=== PATIENT | female | born 1950 | race Caucasian/White ===

== ENCOUNTER → 2017-02-15 | Outpatient (CLI) | payer MEDICARE ==
--- NOTE | 2017-02-15 15:29 | CT ---
EXAMINATION TYPE: CT chest wo con DATE OF EXAM: 02/15/2017 COMPARISON: Chest CT September 16, 2012 HISTORY: SOB and cough. CT DLP: 710 mGycm. Automated Exposure Control for Dose Reduction was Utilized. TECHNIQUE: CT scan of the thorax is performed without IV contrast. FINDINGS: LUNGS: There are new areas of new groundglass opacity with reticulation and septal thickening seen bi laterally involving upper and lower lobes with slightly more prominent focal involvement in the left upper lobe noted. No significant nodularity is seen. No bronchiectasis or bronchial wall thickening i s present. No significant honeycombing or cystic change. No pleural effusion or pneumothorax is noted . MEDIASTINUM: Lack of IV contrast is noted to limit evaluation for mediastinal and especially hilar a denopathy. There are no definitive greater than 1 cm hilar or mediastinal lymph nodes. No cardiomeg lisandro or pericardial effusion is seen. Mild to moderate left atrial dilatation is felt redemonstrated. Prominent coronary artery calcification and/or coronary stents is seen. There is gas filled esophagus with focal moderate to large size hiatal hernia now identified. OTHER: Some asymmetric atrophy of left kidney is noted which is small in size and shows cortical thin manuel. Cholecystectomy clips are now identified. IMPRESSION: 1. New lung findings since 2012 CT suggesting predominantly pulmonary fibrosis, consider IPF. Clinica l correlation advised. 2. New asymmetric atrophy of left kidney noted. Correlate with renal lab values. 3. New moderate to large size hiatal hernia noted.
== END | disposition home or self-care (01) ==
LOC: RADCTMAIN 14:45
PROVIDERS: ATTEND Internal Medicine
DX: R94.2 Abnormal results of pulmonary function studies (principal); R05 Cough; R06.02 Shortness of breath
CPT/HCPCS: 71250

== ENCOUNTER → 2018-12-14 | Outpatient (CLI) | payer MEDICARE | END | disposition home or self-care (01) | LOC: LABWHC1 10:21 | PROVIDERS: ATTEND Internal Medicine Endocrinology, Diabetes & Metabolism | DX: E27.3 Drug-induced adrenocortical insufficiency (principal) | CPT/HCPCS: 36415; 82024; 82533 ==

== ENCOUNTER 2019-08-09 17:13 | Emergency (ER) | payer MEDICARE ==
[~2019-08-09 17:13] MED LIST: EPINEPHrine 10 ML SYRINGE (0.1 MG/ML) ONE; SODIUM BICARB 8.4% 50 ML SYR (1 MEQ/ML) ONE
--- NOTE | 2019-08-09 18:10 | P.PN ---
Progress Note - Text Progress Note Date: 08/09/19 This is a very pleasant 69-year-old female patient with a past medical history significant for chronic obstructive pulmonary disease as well as permanent pacemaker implantation was admitted to [facility] with shortness of breath and she was diagnosed with acute exacerbation of chronic obstructive pulmonary disease with possible underlying pneumonia as well and beside that she was ruled in for acute non-ST deviation myocardial infarction. The troponin went up to more than 120. The EKG continues to show an atrial sensed ventricular paced rhythm. We pursued conservative medical approach on her because she did not have any symptoms of chest pain or chest discomfort and more importantly she was in acute renal failure with a creatinine was more than 4. Maximize medical treatment was advised and the patient has done well until later on today. She was seen earlier today [facility] and she was chest pain-free. Her blood pressure has been stable and she was on aspirin, statin, as well as metoprolol. Nephrology as well as critical care team are involved in her care. I was notified earlier today this afternoon that the patient was in acute respiratory distress and also she was hypotensive. Fluid was started and also I advised the ICU team to start the patient on vasopressors with dopamine. Beside that I went and evaluated the patient at the intensive care unit at [facility] and I discussed with her briefly because she was in acute respiratory distress about the next step which include proceeding with coronary angiogram and possible angioplasty and stenting taking a risk of going into renal failure needs dialysis. The patient somewhat agreed to that then I did speak with her niece who was in the waiting room outside the intensive care unit [facility] and also she was agreed with that. Ambulance was called and the patient was transferred to the emergency room at [facility]. That started after I notified the emergency room and also modified the laborer shellfish processing team that the patient is going to undergo a heart catheterization and possible percutaneous coronary intervention with possible use of Impella. On the way to the emergency room here and just a few minutes before I arrived [facility] the patient did have significant change in mental status and also she went hypotensive with systolic pressure in the 80s. Subsequently she was transferred to the ER where she was in trauma 1 at that point she was in PEA where CPR was initiated. The patient was intubated. For 20 minutes no pulse was restored in spite of using epinephrine. Lately the patient went into V. fib requiring shock. The patient was coded for a total of 30 minutes then finally CPR was stopped. I did discuss her situation and her poor prognosis with the family during the middle of the CPR because the CPR was guided by the ER physician, Dr. Larry Bardales and also I updated the family when we stop the CPR 30 minutes after it was initiated as well. The medical insurance coder will be called to come and evaluate the patient.
--- NOTE | 2019-08-09 19:25 | ED ---
CPR HPI - General Stated Complaint: Unresponsive Time Seen by Provider: 08/09/19 17:13 Source: RN/MD, EMS, RN notes reviewed, old records reviewed Mode of arrival: EMS - History of Present Illness Initial Comments: This is a 69-year-old female with a history of multiple medical problems including CVA hyponatremia stage III kidney disease depression IBS former smoker chronic obesity pulmonary hypertension hypertension heart block with pacemaker among other medical problems who was in the process of being transferred to the [facility] at this facility from [facility] when during the gómez sfer she became pulseless and appendectomy. Patient the time was not intubated. Patient was brought in with CPR being performed. MD Complaint: stopped breathing, collapsed during rest - Related Data Home Medications Medication Instructions Recorded Confirmed Amitriptyline HCl 50 mg PO DAILY 06/11/14 06/12/14 Lisinopril 10 mg PO DAILY 06/11/14 06/11/14 Venlafaxine HCl 100 mg PO BID 06/11/14 06/11/14 Previous Rx's Medication Instructions Recorded Ibuprofen [Motrin] 600 mg PO Q6HR PRN #30 tab 06/12/14 Allergies Allergy/AdvReac Type Severity Reaction Status Date / Time Sulfa (Sulfonamide Allergy Rash/Hives Verified 06/11/14 09:41 Antibiotics) Review of Systems ROS Statement: Those systems with pertinent positive or pertinent negative responses have been documented in the HPI. Limitations: ROS unobtainable due to patients medical condition Past Medical History Past Medical History: Hypertension, Pneumonia Additional Past Medical History / Comment(s): hx DEPRESSION History of Any Multi-Drug Resistant Organisms: None Reported Past Surgical History: Appendectomy, Bladder Surgery, Cholecystectomy, Tubal Ligation Additional Past Surgical History / Comment(s): PLATE IN LEFT ANKLE, HEMMORRHOIDECTOMY, BLADDER SUSPENSION YRS AGO BUT DIDNT TAKE Past Anesthesia/Blood Transfusion Reactions: Motion Sickness, Postoperative Nausea & Vomiting (PONV) Past Psychological History: Anxiety, Depression Smoking Status: Former smoker Past Alcohol Use History: None Reported Additional Past Alcohol Use History / Comment(s): QUIT DRINKING ALCOHOL 12 YRS AGO Past Drug Use History: None Reported General Exam - General Exam Comments Initial Comments: This is a well-developed well-nourished obese unresponsive female with CPR progress Limitations: altered mental status, physical limitation General appearance: in distress Head exam: Present: atraumatic Eye exam: Present: other (Pupils are fixed and dilated and unresponsive approximately 6 mm bilaterally) ENT exam: Present: other (Emesis noted in the oropharynx) Neck exam: Present: normal inspection, other (No pulses palpable with old scarring noted from a carotid endarterectomy right) Respiratory exam: Present: decreased breath sounds Cardiovascular Exam: Present: other (Pulseless) GI/Abdominal exam: Present: other Rectal exam: Present: deferred Extremities exam: Present: other (Pale with some cyanosis noted) Back exam: Present: normal inspection Neurological exam: Present: other (Unresponsive) Psychiatric exam: Present: other (Unresponsive) Skin exam: Present: pallor, other (Cyanosis noted to the face and upper neck and chest) Course - Reevaluation(s) Reevaluation #1: 08/09/19 19:19 CPR and ACLS protocol was continued. Patient remained pulseless with the exception of one episode of apparent ventricular fibrillation. She did have a paced rhythm on the monitor with no pulses. She was for related was from fibrillation to 8 paced rhythm but still remained pulseless. Procedures - Intubation Paralytic: other (No paralytic needed) Laryngoscope: fiber optic video scope Size: 4 ET Tube Size: 7 ET Tube Uncuffed: No (Coughs) Tube Secured Depth (cm): 23 Tube Secured Location: lips Tube Placement Confirmation: visualized tube passing through cords, equal breath sounds bilaterally, confirmation by capnometry Intubation Complications: difficult intubation, other (She did have copious emesis. The initial attempt was made with a 3 Shepard blade and 7.5 endotracheal tube was difficult intubation a60 present use with success. There was evidence of aspiration prior to the events) Medical Decision Making - Medical Decision Making A González protocol was continued but to no avail. The patient was pronounced at 17:42 pm. The patient's attending Dr. Rothman was notified. Dr. Sales was present in the emergency department. At this Did notify the family. The medical technologist's office was contacted the patient currently is an ME case with pending resolution. I did also notify Dr. Cabral who is group took care of the patient at [facility]. Critical Care Time Critical Care Time: Yes Critical Care Time: 44 minutes of critical care time which included initial presentation with patient history and physical CPR performed cardioversion performed ACLS performed. This did not include the time of intubation. This did include notifying multiple physicians contacting the medical technologist's office and review old charting that was available. Disposition Clinical Impression: Sudden cardiac , Cardiac arrest with pulseless electrical activity Disposition: Referrals: William Rothman DO [Primary Care Provider] - 1-2 days Preliminary Cause of : Sudden cardiac , PEA arrest
== END 2019-08-09 20:46 | disposition expired ==
LOC: EC 17:13
DX: I46.9 Cardiac arrest, cause unspecified (principal); R41.82 Altered mental status, unspecified; N18.3 Chronic kidney disease, stage 3 (moderate); I13.10 Hypertensive heart and chronic kidney disease without heart failure, with stage 1 through stage 4 chronic kidney disease, or unspecified chronic kidney disease; I27.20 Pulmonary hypertension, unspecified; K58.9 Irritable bowel syndrome, unspecified; F32.9 Major depressive disorder, single episode, unspecified; Z87.891 Personal history of nicotine dependence; Z88.2 Allergy status to sulfonamides; Z79.899 Other long term (current) drug therapy; Z86.73 Personal history of transient ischemic attack (TIA), and cerebral infarction without residual deficits; Z95.0 Presence of cardiac pacemaker; Z90.49 Acquired absence of other specified parts of digestive tract; Z98.890 Other specified postprocedural states
CPT/HCPCS: 31500; 92950; 99291